=== PATIENT | female | born 1980 | race Hispanic/Latino ===

== ENCOUNTER 2020-06-08 10:44 | Outpatient (CLI) | payer BC, SELFPAY ==
--- NOTE | ~2020-06-08 | MM_ITS ---
EXAMINATION: MM screening [facility] BI w lety HISTORY: Screening mammogram TECHNIQUE: Craniocaudal and mediolateral oblique 3-D tomosynthesis images were obtained and synthetic 2-D images were generated. CAD analysis was submitted and interpreted. COMPARISON: 09/02/2018, 07/11/2018 BREAST PARENCHYMAL COMPOSITION: There are scattered areas of fibroglandular density. FINDINGS: Patient was due for six-month follow-up for probably benign right breast asymmetry in 2018 which was never performed. The right breast asymmetry persists on the current examination bu t has decreased, consistent with a benign finding. There is no evidence of suspicious mass, calcifica tion, or architectural distortion to suggest malignancy in either breast. There has been no suspiciou s interval change. IMPRESSION: 1. No mammographic evidence of malignancy. 2. Recommend routine screening mammography in one year. BI-RADS Category 2: Benign finding(s). Reviewed, dictated and finalized at location A. [employer]
== END 2020-06-08 10:45 | disposition home or self-care (01) ==
LOC: ANHIMG 10:47
DX: Z12.31 Encounter for screening mammogram for malignant neoplasm of breast (principal)
CPT/HCPCS: 77063; 77067